=== PATIENT | female | born 1965 | race Caucasian/White ===

== ENCOUNTER → 2018-07-06 09:58 | Outpatient (CLI) | payer OTHER, SELFPAY ==
--- NOTE | 2018-07-06 09:59 | DI.US.S_ITS ---
ULTRASOUND OF LEFT BREAST: 07/06/2018 CLINICAL: Left brst CA with lumpectomy . Post op seroma aspirated . Pain at lumpectomy/aspiration site. No prior exams were available for comparison. Color flow and real-time ultrasound of the left breast were performed on the areas of interest. Coley scale images of the real-time examination were reviewed. There is 6.1 cm x 3.1 cm x 3.8 cm irregular cyctic lesion in the left breast at 11 o'clock middle depth with multiple avascular internal septations. Color flow imaging demonstrates that there is no vascularity present. This corresponds with the area of paion and redness. IMPRESSION: PROBABLY BENIGN 6.1 cm x 3.1 cm x 3.8 cm cystic lesion in the left breast at 11 o'clock. This corresponds with the clinical findings, and is in the surgical bed at the site of the prior seroma. Differential considerations include loculated seroma, resolving hemotoma, and abcess. Although neoplasm is considered less likely, it cannot be excluded. Surgical follow up is recommended. Additionally, a follow-up mammogram in 6 months is recommended to demonstrate stability or resolution. This exam was interpreted at Station ID: [id number]. Electronically Signed By: Sherrie deshpande/:07/06/2018 12:50:07 letter sent: Clinical Evaluation Ultrasound BI-RADS: 3 Probably benign
== END ==
PROVIDERS: Visit Provider Internal Medicine Hematology & Oncology
DX: C50.912 Malignant neoplasm of unspecified site of left female breast (principal); N60.02 Solitary cyst of left breast; G89.18 Other acute postprocedural pain; N64.4 Mastodynia
CPT/HCPCS: 76642

== ENCOUNTER → 2018-10-12 10:02 | Outpatient (CLI) | payer OTHER, SELFPAY | PROVIDERS: Visit Provider Internal Medicine Hematology & Oncology | DX: C50.912 Malignant neoplasm of unspecified site of left female breast (principal); Z78.0 Asymptomatic menopausal state; Z17.0 Estrogen receptor positive status [ER+]; F17.210 Nicotine dependence, cigarettes, uncomplicated | CPT/HCPCS: 77080 ==

== ENCOUNTER → 2018-11-05 10:21 | Outpatient (CLI) | payer OTHER, SELFPAY ==
[2018-11-05 10:49] LABS: Add Manual Diff / Slide Review NO; Basophils Absolute Auto 0 /uL (0-100); Basophils Percent Auto 0.6 % (0-2); Eosinophils Absolute Auto 200 /uL (0-450); Eosinophils Percent Auto 1.9 % (2-4); Hematocrit 38.6 % (36-46); Hemoglobin 13.1 g/dL (12.0-16.0); Lymphocytes Absolute Auto 1800 /uL (1100-4500); Lymphocytes Percent Auto 21.7 % (25-40); Mean Corpuscular HGB Conc 33.9 % (30-36); Mean Corpuscular Hemoglobin 29.9 PG (26-34); Mean Corpuscular Volume 88.2 fL (80-100); Monocytes Absolute Auto 600 /uL (0-900); Monocytes Percent Auto 6.9 % (3-14); Neutrophils Absolute Auto 5600 /uL (1500-7000); Neutrophils Percent Auto 68.9 % (50-75); Platelet Count 281 X10^3/uL (150-400); Red Blood Cell Count 4.38 X10^6/uL (4.0-5.2); White Blood Cell Count 8.1 X10^3/uL (4.5-11.0)
[2018-11-05 12:05] LABS: Alanine Aminotransferase 33 IU/L (9-52); Albumin 4.1 g/dL (3.5-5.0); Albumin Globulin Ratio 1.6 (1.0-2.8); Alkaline Phosphatase 45 U/L (38-126); Aspartate Aminotransferase 30 IU/L (14-36); BUN Creatinine Ratio 34.3 (6-22); Bilirubin Total 0.3 mg/dL (0.2-1.3); Blood Urea Nitrogen 24 mg/dL (7-17); Calcium 9.5 mg/dL (8.4-10.2); Carbon Dioxide 27 mmol/L (22-32); Chloride 105 mmol/L (98-107); Estimated Glomerular Filt Rate > 60.0 mL/min (>60); Globulin 2.6 g/dL (1.7-4.1); Glucose 75 mg/dL (70-100); Potassium 5.1 mmol/L (3.4-5.1); Sodium 141 mmol/L (137-145); Total Protein 6.7 g/dL (6.3-8.2)
[2018-11-05 12:09] LABS: HEMOLYSIS 62 (0-50)
== END ==
PROVIDERS: Visit Provider Internal Medicine Hematology & Oncology
DX: C50.919 Malignant neoplasm of unspecified site of unspecified female breast (principal)
CPT/HCPCS: 36415; 80053; 85025

== ENCOUNTER → 2019-02-28 09:50 | Outpatient (CLI) | payer OTHER, SELFPAY ==
[2019-02-28 11:41] LABS: Add Manual Diff / Slide Review NO; Basophils Absolute Auto 0 /uL (0-100); Basophils Percent Auto 0.6 % (0-2); Eosinophils Absolute Auto 300 /uL (0-450); Eosinophils Percent Auto 3.6 % (2-4); Hematocrit 43.8 % (36-46); Hemoglobin 14.6 g/dL (12.0-16.0); Lymphocytes Absolute Auto 1900 /uL (1100-4500); Lymphocytes Percent Auto 26.6 % (25-40); Mean Corpuscular HGB Conc 33.3 % (30-36); Mean Corpuscular Hemoglobin 29.8 PG (26-34); Mean Corpuscular Volume 89.4 fL (80-100); Monocytes Absolute Auto 500 /uL (0-900); Monocytes Percent Auto 7.2 % (3-14); Neutrophils Absolute Auto 4400 /uL (1500-7000); Platelet Count 328 X10^3/uL (150-400); Red Cell Distribution Width 14.2 % (11.6-14.8); White Blood Cell Count 7.1 X10^3/uL (4.5-11.0)
[2019-02-28 11:53] LABS: Alanine Aminotransferase 28 IU/L (9-52); Albumin 4.5 g/dL (3.5-5.0); Albumin Globulin Ratio 1.4 (1.0-2.8); Alkaline Phosphatase 83 U/L (38-126); Aspartate Aminotransferase 28 IU/L (14-36); Bilirubin Total 0.6 mg/dL (0.2-1.3); Blood Urea Nitrogen 21 mg/dL (7-17); Calcium 9.9 mg/dL (8.4-10.2); Carbon Dioxide 28 mmol/L (22-32); Chloride 104 mmol/L (98-107); Estimated Glomerular Filt Rate > 60.0 mL/min (>60); Globulin 3.3 g/dL (1.7-4.1); Glucose 87 mg/dL (70-100); HEMOLYSIS < 15 (0-50); Potassium 4.2 mmol/L (3.4-5.1); Sodium 140 mmol/L (137-145); Total Protein 7.8 g/dL (6.3-8.2)
== END ==
PROVIDERS: PCP Family Medicine; Visit Provider Internal Medicine Hematology & Oncology
DX: C50.919 Malignant neoplasm of unspecified site of unspecified female breast (principal)
CPT/HCPCS: 36415; 80053; 85025